=== PATIENT | female | born 1955 | race African-American/Black ===

== ENCOUNTER 2018-03-27 19:49 | Emergency (ER) | payer MEDICARE, MEDICAID ==
[~2018-03-27] VITALS: Ht 167.6 cm; Wt 98.0 kg
[2018-03-27] MEDS ORDERED: ACETAMINOPHEN 325MG TABLET PO ONE (22:45)
[2018-03-28] MEDS ORDERED: DIPHENHYDRAMINE 25MG CAPSULE PO ONE (01:45)
[2018-03-28 02:07] VITALS: BP 125/74
== END 2018-03-28 02:07 | disposition home or self-care (01) ==
LOC: ER 23:38
DX: S00.83XA Contusion of other part of head, initial encounter (principal); S20.219A Contusion of unspecified front wall of thorax, initial encounter; F99 Mental disorder, not otherwise specified; E11.9 Type 2 diabetes mellitus without complications; Y04.0XXA Assault by unarmed brawl or fight, initial encounter; Y93.89 Activity, other specified; Y92.018 Other place in single-family (private) house as the place of occurrence of the external cause
CPT/HCPCS: 70110; 71045; 99284; Q0163

== ENCOUNTER 2018-03-28 03:44 | Emergency (ER) | payer MEDICARE, MEDICAID ==
[~2018-03-28] VITALS: Ht 167.6 cm; Wt 109.0 kg
[2018-03-28] MEDS ORDERED: LORAZEPAM 1MG TABLET PO ONE (10:45)
[2018-03-28 14:44] VITALS: BP 136/70
== END 2018-03-28 15:27 | disposition home or self-care (01) ==
LOC: ER 03:44
DX: S06.9X9A Unspecified intracranial injury with loss of consciousness of unspecified duration, initial encounter (principal); E11.9 Type 2 diabetes mellitus without complications; R07.89 Other chest pain; Y04.0XXA Assault by unarmed brawl or fight, initial encounter; Y93.89 Activity, other specified; Y92.018 Other place in single-family (private) house as the place of occurrence of the external cause
CPT/HCPCS: 36415; 70110; 70450; 71045; 82565; 84520; 93005; 99284; 99285; Q0163

== ENCOUNTER 2018-05-02 18:21 | Emergency (ER) | payer MEDICARE, MEDICAID ==
[~2018-05-02] VITALS: Ht 162.6 cm; Wt 90.0 kg
[2018-05-03] MEDS ORDERED: MORPHINE SULFATE 4 MG/ML CPJ (NOT FOR IM USE) IV STA
[2018-05-03] MEDS ORDERED: SODIUM CHLORIDE 0.9% 1,000 ML IV ONE
[2018-05-03] MEDS ORDERED: ONDANSETRON 4MG ODT PO STA
[2018-05-03 00:20] LABS: BASOPHILS % 0.8 % (0.0-2.0); EOSINOPHILS % 2.3 % (0.0-5.0); HEMATOCRIT. 36.7 % (36.0-48.0); HEMOGLOBIN. 12.3 g/dL (12.0-16.0); MEAN CORPUSCULAR HEMOGLOBIN 28.1 pg (28.0-32.0); MEAN PLATELET VOLUME 10.4 fl (7.4-10.4); MONOCYTES % 8.6 % (2.0-8.0); NEUTROPHILS % 49.3 % (40.0-76.0); PLATELET 187 x1000/uL (130-400); RED BLOOD CELL COUNT 4.37 mill/uL (4.2-5.4); RED CELL DISTRIBUTION WIDTH 13.7 % (11.6-14.6)
[2018-05-03 00:27] LABS: CHLORIDE 107 mEq/L (98-107)
[2018-05-03 00:28] LABS: INR 1.1; PARTIAL THROMBOPLASTIN TIME 26.6 sec (23.4-31.0)
[2018-05-03 01:16] LABS: CLARITY URINE CLEAR (CLEAR); COLOR URINE YELLOW (YELLOW); KETONES URINE TRACE (NEGATIVE); LEUKOCYTE ESTERASE URINE NEGATIVE (NEGATIVE); NITRITE URINE NEGATIVE (NEGATIVE); OCCULT BLOOD URINE NEGATIVE (NEGATIVE); PROTEIN URINE NEGATIVE (NEGATIVE); SPECIFIC GRAVITY URINE 1.023 (1.005-1.030); UROBILINOGEN URINE 0.2 E.U./dL (0.2-1.0)
[2018-05-03] MEDS ORDERED: KETOROLAC 30MG/ML VIAL IV ONE (02:00)
[2018-05-03 04:15] VITALS: BP 139/71
== END 2018-05-03 05:42 | disposition home or self-care (01) ==
LOC: ER 18:41
DX: R10.13 Epigastric pain (principal); K80.20 Calculus of gallbladder without cholecystitis without obstruction; I10 Essential (primary) hypertension; E11.9 Type 2 diabetes mellitus without complications; K29.70 Gastritis, unspecified, without bleeding; Z88.6 Allergy status to analgesic agent
CPT/HCPCS: 36415; 71045; 74176; 76705; 80053; 81003; 83690; 85025; 85610; 85730; 93005; 96361; 96374; 99285; J1885; J7030; Q0162

== ENCOUNTER 2018-05-08 01:25 | Emergency (ER) | payer MEDICARE, MEDICAID ==
[~2018-05-08] VITALS: Ht 170.2 cm; Wt 114.0 kg
[2018-05-08 06:51] VITALS: BP 145/83
[2018-05-08 08:30] LABS: BASOPHILS % 0.7 % (0.0-2.0); EOSINOPHILS % 1.7 % (0.0-5.0); HEMATOCRIT. 38.9 % (36.0-48.0); LYMPHOCYTES % 27.6 % (20.0-50.0); MEAN CORPUSCULAR HEMOGLOBIN 28.1 pg (28.0-32.0); MEAN CORPUSCULAR VOLUME 84.3 fL (81.0-99.0); MEAN PLATELET VOLUME 10.8 fl (7.4-10.4); MONOCYTES % 8.7 % (2.0-8.0); NEUTROPHILS % 61.3 % (40.0-76.0); PLATELET 189 x1000/uL (130-400); RED BLOOD CELL COUNT 4.62 mill/uL (4.2-5.4); RED CELL DISTRIBUTION WIDTH 13.7 % (11.6-14.6)
[2018-05-08 10:05] LABS: CHLORIDE 107 mEq/L (98-107)
== END 2018-05-08 08:39 | disposition left against medical advice (07) ==
LOC: ER 01:59
DX: K80.20 Calculus of gallbladder without cholecystitis without obstruction (principal); K76.0 Fatty (change of) liver, not elsewhere classified; R11.2 Nausea with vomiting, unspecified; E11.9 Type 2 diabetes mellitus without complications; I10 Essential (primary) hypertension; F20.9 Schizophrenia, unspecified; Z88.6 Allergy status to analgesic agent
CPT/HCPCS: 36415; 76705; 80053; 83690; 85025; 99285

== ENCOUNTER 2018-05-25 08:52 | Emergency (ER) | payer MEDICARE, MEDICAID ==
[~2018-05-25] VITALS: Ht 167.6 cm; Wt 110.0 kg
[2018-05-25 08:54] VITALS: BP 144/77
== END 2018-05-25 10:06 | disposition home or self-care (01) ==
LOC: ER 08:52
DX: F99 Mental disorder, not otherwise specified (principal); Z76.0 Encounter for issue of repeat prescription; Z88.5 Allergy status to narcotic agent
CPT/HCPCS: 99284

== ENCOUNTER 2018-06-07 20:18 | Emergency (ER) | payer MEDICARE, MEDICAID ==
[~2018-06-07] VITALS: Ht 167.6 cm; Wt 120.5 kg
[2018-06-07] MEDS ORDERED: FAMOTIDINE 20MG/2ML VIAL IV STA (21:53)
[2018-06-07] MEDS ORDERED: SODIUM CHLORIDE 0.9% 1,000 ML IV ONE (21:53)
[2018-06-07] MEDS ORDERED: MAGNESIUM/ALUMINUM HYDROXIDE/SIMETHICONE 30ML UDC PO STA (21:53)
[2018-06-07] MEDS ORDERED: VISCOUS LIDOCAINE 2% 15 ML UDC PO STA (21:53)
[2018-06-07 23:34] LABS: BASOPHILS % 0.7 % (0.0-2.0); EOSINOPHILS % 1.9 % (0.0-5.0); HEMATOCRIT. 37.1 % (36.0-48.0); HEMOGLOBIN. 12.5 g/dL (12.0-16.0); LYMPHOCYTES % 35.6 % (20.0-50.0); MEAN CORPUSCULAR HEMOGLOBIN 28.5 pg (28.0-32.0); MEAN PLATELET VOLUME 11.2 fl (7.4-10.4); MONOCYTES % 7.8 % (2.0-8.0); PLATELET 173 x1000/uL (130-400); RED BLOOD CELL COUNT 4.37 mill/uL (4.2-5.4)
[2018-06-07 23:37] LABS: CHLORIDE 106 mEq/L (98-107)
[2018-06-08 00:08] VITALS: BP 135/78
== END 2018-06-08 00:23 | disposition home or self-care (01) ==
LOC: ER 20:18
DX: K29.00 Acute gastritis without bleeding (principal); E11.9 Type 2 diabetes mellitus without complications; F20.9 Schizophrenia, unspecified; M19.90 Unspecified osteoarthritis, unspecified site; Z88.2 Allergy status to sulfonamides; Z88.6 Allergy status to analgesic agent; Z88.5 Allergy status to narcotic agent
CPT/HCPCS: 36415; 80053; 83690; 85025; 93005; 96361; 96374; 99285; J3490; J7030

== ENCOUNTER 2018-07-16 17:53 | Emergency (ER) | payer MEDICARE, MEDICAID ==
[~2018-07-16] VITALS: Ht 167.6 cm; Wt 120.0 kg
[2018-07-16] MEDS ORDERED: LORAZEPAM 0.5MG TABLET PO ONE (19:00)
[2018-07-16 19:55] VITALS: BP 134/74
== END 2018-07-16 19:57 | disposition home or self-care (01) ==
LOC: ER 17:53
DX: F41.9 Anxiety disorder, unspecified (principal); E11.9 Type 2 diabetes mellitus without complications; I10 Essential (primary) hypertension; Z88.5 Allergy status to narcotic agent
CPT/HCPCS: 99283

== ENCOUNTER 2018-10-07 14:25 | Emergency (ER) | payer MEDICARE, MEDICAID ==
[~2018-10-07] VITALS: Ht 162.6 cm; Wt 120.0 kg
[2018-10-07 15:41] LABS: BASOPHILS % 0.9 % (0.0-2.0); EOSINOPHILS % 1.1 % (0.0-5.0); HEMOGLOBIN. 13.5 g/dL (12.0-16.0); LYMPHOCYTES % 30.6 % (20.0-50.0); MEAN CORPUSCULAR HEMOGLOBIN 28.1 pg (28.0-32.0); MEAN CORPUSCULAR VOLUME 85.6 fL (81.0-99.0); MEAN PLATELET VOLUME 11.2 fl (7.4-10.4); MONOCYTES % 7.4 % (2.0-8.0); PLATELET 176 x1000/uL (130-400); RED BLOOD CELL COUNT 4.79 mill/uL (4.2-5.4); RED CELL DISTRIBUTION WIDTH 13.8 % (11.6-14.6)
[2018-10-07 15:50] LABS: CHLORIDE 110 mEq/L (98-107)
[2018-10-07 15:54] LABS: ETHANOL BLOOD < 10 mg/dL
[2018-10-07 16:01] LABS: CLARITY URINE CLEAR (CLEAR); COLOR URINE YELLOW (YELLOW); KETONES URINE TRACE (NEGATIVE); LEUKOCYTE ESTERASE URINE NEGATIVE (NEGATIVE); NITRITE URINE NEGATIVE (NEGATIVE); OCCULT BLOOD URINE NEGATIVE (NEGATIVE); PROTEIN URINE NEGATIVE (NEGATIVE); SPECIFIC GRAVITY URINE 1.024 (1.005-1.030); UROBILINOGEN URINE 0.2 E.U./dL (0.2-1.0)
[2018-10-07 16:31] LABS: *AMPHETAMINES SCREEN URINE NEGATIVE (NEGATIVE); *BARBITURATES SCREEN URINE NEGATIVE (NEGATIVE); *BENZODIAZEPINES SCREEN URINE NEGATIVE (NEGATIVE); *COCAINE SCREEN URINE NEGATIVE (NEGATIVE); METHADONE URINE SCREEN NEGATIVE (NEGATIVE); OPIATES URINE SCREEN NEGATIVE (NEGATIVE)
[2018-10-07 16:32] LABS: CANNABINOID URINE SCREEN NEGATIVE (NEGATIVE); PHENCYCLIDINE URINE SCREEN NEGATIVE (NEGATIVE)
[2018-10-08] MEDS ORDERED: LORAZEPAM 1MG TABLET PO ONE ×2 (01:45→03:45)
[2018-10-08] MEDS ORDERED: DIPHENHYDRAMINE 25MG CAPSULE PO ONE (01:45)
[2018-10-08 10:21] VITALS: BP 152/76
== END 2018-10-08 10:23 | disposition home or self-care (01) ==
LOC: ER 14:25
DX: R45.851 Suicidal ideations (principal); E11.9 Type 2 diabetes mellitus without complications; R56.9 Unspecified convulsions; F20.9 Schizophrenia, unspecified; Z88.2 Allergy status to sulfonamides; Z88.5 Allergy status to narcotic agent; Z88.6 Allergy status to analgesic agent
CPT/HCPCS: 36415; 80053; 80305; 81003; 85025; 99284; G0482; Q0163

== ENCOUNTER 2018-10-23 22:21 | Emergency (ER) | payer MEDICARE, MEDICAID ==
[~2018-10-23] VITALS: Ht 170.2 cm; Wt 91.0 kg
[2018-10-23 22:42] VITALS: BP 152/79
== END 2018-10-24 02:30 | disposition left against medical advice (07) ==
LOC: ER 22:21
DX: Z53.21 Procedure and treatment not carried out due to patient leaving prior to being seen by health care provider (principal)
CPT/HCPCS: A4565

== ENCOUNTER 2018-12-10 15:36 | Emergency (ER) | payer MEDICARE, MEDICAID ==
[~2018-12-10] VITALS: Ht 167.6 cm; Wt 90.0 kg
[2018-12-10 15:48] VITALS: BP 158/76
== END 2018-12-10 17:30 | disposition left against medical advice (07) ==
LOC: ER 15:46
DX: Z53.21 Procedure and treatment not carried out due to patient leaving prior to being seen by health care provider (principal); E11.9 Type 2 diabetes mellitus without complications; R56.9 Unspecified convulsions

== ENCOUNTER 2018-12-15 20:53 | Emergency (ER) | payer MEDICARE, MEDICAID ==
[~2018-12-15] VITALS: Ht 165.1 cm; Wt 111.0 kg
[2018-12-15] MEDS ORDERED: MAGNESIUM/ALUMINUM HYDROXIDE/SIMETHICONE 30ML UDC PO STA (22:43)
[2018-12-15] MEDS ORDERED: VISCOUS LIDOCAINE 2% 15 ML UDC PO STA (22:43)
[2018-12-15] MEDS ORDERED: FAMOTIDINE 20MG TABLET PO ONE (22:45)
[2018-12-15 23:48] LABS: BASOPHILS % 0.8 % (0.0-2.0); EOSINOPHILS % 2.2 % (0.0-5.0); HEMATOCRIT. 42.5 % (36.0-48.0); LYMPHOCYTES % 34.5 % (20.0-50.0); MEAN CORPUSCULAR HEMOGLOBIN 28.5 pg (28.0-32.0); MEAN CORPUSCULAR VOLUME 86.8 fL (81.0-99.0); MEAN PLATELET VOLUME 10.3 fl (7.4-10.4); MONOCYTES % 9.5 % (2.0-8.0); PLATELET 201 x1000/uL (130-400); RED CELL DISTRIBUTION WIDTH 14.4 % (11.6-14.6)
[2018-12-15 23:56] LABS: CHLORIDE 109 mEq/L (98-107)
[2018-12-16 00:57] LABS: CLARITY URINE CLEAR (CLEAR); COLOR URINE YELLOW (YELLOW); KETONES URINE NEGATIVE (NEGATIVE); LEUKOCYTE ESTERASE URINE NEGATIVE (NEGATIVE); NITRITE URINE NEGATIVE (NEGATIVE); OCCULT BLOOD URINE NEGATIVE (NEGATIVE); PROTEIN URINE NEGATIVE (NEGATIVE); SPECIFIC GRAVITY URINE 1.021 (1.005-1.030); UROBILINOGEN URINE 0.2 E.U./dL (0.2-1.0)
[2018-12-16] MEDS ORDERED: ACETAMINOPHEN 500MG TABLET PO ONE (01:15)
[2018-12-16 09:13] VITALS: BP 150/70
== END 2018-12-16 09:21 | disposition home or self-care (01) ==
LOC: ER 20:53
DX: R10.13 Epigastric pain (principal); R51 Headache; F31.9 Bipolar disorder, unspecified; F20.9 Schizophrenia, unspecified; E11.9 Type 2 diabetes mellitus without complications; K29.70 Gastritis, unspecified, without bleeding; M06.9 Rheumatoid arthritis, unspecified; Z88.2 Allergy status to sulfonamides; Z88.5 Allergy status to narcotic agent; Z88.6 Allergy status to analgesic agent
CPT/HCPCS: 36415; 84484; 93005; 99284

== ENCOUNTER 2019-01-06 16:31 | Emergency (ER) | payer MEDICARE, MEDICAID ==
[~2019-01-06] VITALS: Ht 167.6 cm; Wt 76.0 kg
[2019-01-06 16:32] VITALS: BP 141/91
== END 2019-01-06 16:40 | disposition left against medical advice (07) ==
LOC: ER 16:31
DX: R46.89 Other symptoms and signs involving appearance and behavior (principal); Z53.21 Procedure and treatment not carried out due to patient leaving prior to being seen by health care provider

== ENCOUNTER 2019-01-29 18:58 | Emergency (ER) | payer MEDICARE, MEDICAID ==
[~2019-01-29] VITALS: Ht 167.6 cm; Wt 118.0 kg
[2019-01-29] MEDS: ACETAMINOPHEN 325MG TABLET PO ONE (19:57)
[2019-01-29 20:07] VITALS: BP 150/71
== END 2019-01-29 20:16 | disposition home or self-care (01) ==
LOC: ER 18:58
DX: M54.41 Lumbago with sciatica, right side (principal); E11.9 Type 2 diabetes mellitus without complications; Z88.5 Allergy status to narcotic agent; Z88.2 Allergy status to sulfonamides; Z88.6 Allergy status to analgesic agent
CPT/HCPCS: 82962; 99283

== ENCOUNTER 2019-05-12 05:48 | Emergency (ER) | payer MEDICARE, MEDICAID ==
[~2019-05-12] VITALS: Ht 167.6 cm; Wt 83.0 kg
[2019-05-12] MEDS ORDERED: KETOROLAC 15MG/ML VIAL IV ONE (07:00)
[2019-05-12] MEDS ORDERED: LEVETIRACETAM 1,000 MG in SODIUM CHLORIDE 0.9% 100 ML IV ONE (07:00)
[2019-05-12 07:58] LABS: BASOPHILS % 0.9 % (0.0-2.0); EOSINOPHILS % 2.6 % (0.0-5.0); HEMATOCRIT. 38.5 % (36.0-48.0); HEMOGLOBIN. 12.9 g/dL (12.0-16.0); LYMPHOCYTES % 31.7 % (20.0-50.0); MEAN CORPUSCULAR HEMOGLOBIN 29.2 pg (28.0-32.0); MEAN CORPUSCULAR VOLUME 87.2 fL (81.0-99.0); MEAN PLATELET VOLUME 10.3 fl (7.4-10.4); MONOCYTES % 10.3 % (2.0-8.0); NEUTROPHILS % 54.5 % (40.0-76.0); PLATELET 178 x1000/uL (130-400); RED BLOOD CELL COUNT 4.41 mill/uL (4.2-5.4)
[2019-05-12] MEDS ORDERED: LEVETIRACETAM 1000MG/100ML 100 ML IV NR (08:00)
[2019-05-12 08:03] LABS: CHLORIDE 106 mEq/L (98-107)
[2019-05-12 11:42] VITALS: BP 124/68
== END 2019-05-12 11:43 | disposition home or self-care (01) ==
LOC: ER 06:32
DX: R56.9 Unspecified convulsions (principal); M54.5 Low back pain; R51 Headache; E11.9 Type 2 diabetes mellitus without complications; I10 Essential (primary) hypertension; Z88.2 Allergy status to sulfonamides; Z88.6 Allergy status to analgesic agent
CPT/HCPCS: 36415; 70450; 80048; 85025; 96365; 96368; 96375; 99284; J1885; J1953; J7050

== ENCOUNTER 2022-07-21 16:56 | Emergency (ER) | payer MEDICARE, MEDICAID ==
[~2022-07-21] VITALS: Ht 167.6 cm; Wt 114.0 kg
[2022-07-21 17:00] VITALS: BP 161/75
== END 2022-07-21 18:55 | disposition home or self-care (01) ==
LOC: ER 16:56
DX: S60.450A Superficial foreign body of right index finger, initial encounter (principal); I10 Essential (primary) hypertension; E11.9 Type 2 diabetes mellitus without complications; Z98.890 Other specified postprocedural states; Z86.59 Personal history of other mental and behavioral disorders; X58.XXXA Exposure to other specified factors, initial encounter; Y93.89 Activity, other specified; Y92.89 Other specified places as the place of occurrence of the external cause; Y99.8 Other external cause status
CPT/HCPCS: 20520; 99284

== ENCOUNTER 2024-04-08 16:07 | Emergency (ER) | payer MEDICARE, MEDICAID ==
[~2024-04-08] VITALS: Ht 152.4 cm; Wt 118.0 kg
[2024-04-08 16:32] VITALS: O2SAT 98
[2024-04-08] MEDS: ACETAMINOPHEN 325MG TABLET PO ONE (20:27)
[2024-04-08] MEDS ORDERED: TOPUD MT (20:43)
[2024-04-08 22:40] VITALS: BP 133/69; PULSE 79; RESP 16; TEMP 98.7
== END 2024-04-08 22:45 | disposition home or self-care (01) ==
LOC: ER 16:07
DX: S09.90XA Unspecified injury of head, initial encounter (principal); F31.9 Bipolar disorder, unspecified; E11.9 Type 2 diabetes mellitus without complications; I10 Essential (primary) hypertension; F20.9 Schizophrenia, unspecified; Z88.2 Allergy status to sulfonamides; Y08.89XA Assault by other specified means, initial encounter; Y93.89 Activity, other specified; Y92.89 Other specified places as the place of occurrence of the external cause; Y99.8 Other external cause status
CPT/HCPCS: 73080; 73502; 99284

== ENCOUNTER 2024-08-15 12:29 | Emergency (ER) | payer MEDICARE, MEDICAID ==
[~2024-08-15] VITALS: Ht 167.6 cm; Wt 113.0 kg
[~2024-08-15 12:29] MED LIST: TOPUD MT
[2024-08-15 12:37] VITALS: O2SAT 97
[2024-08-15 14:13] LABS: CLARITY URINE CLEAR (CLEAR); COLOR URINE YELLOW (YELLOW); GLUCOSE URINE 3+ (NEGATIVE); KETONES URINE NEGATIVE (NEGATIVE); LEUKOCYTE ESTERASE URINE NEGATIVE (NEGATIVE); NITRITE URINE NEGATIVE (NEGATIVE); OCCULT BLOOD URINE NEGATIVE (NEGATIVE); PH URINE 6.5 (4.5-8.0); PROTEIN URINE NEGATIVE (NEGATIVE); SPECIFIC GRAVITY URINE 1.026 (1.005-1.030); UROBILINOGEN URINE 0.2 E.U./dL (0.2-1.0)
[2024-08-15] MEDS: ACETAMINOPHEN 325MG TABLET PO ONE (14:35)
[2024-08-15 14:36] VITALS: BP 132/70; PULSE 72; RESP 18; TEMP 36.94740; O2SAT 99
[2024-08-15 14:58] LABS: SQUAMOUS EPITHELIAL CELL URINE NONE SEEN /lpf (RARE/1+)
[2024-08-15 14:59] LABS: BACTERIA URINE NONE SEEN; RBC URINE NONE SEEN /hpf (0-2); WBC URINE 0-2 /hpf (0-2); YEAST URINE NONE SEEN
[2024-08-15 15:02] LABS: BASOPHILS % 0.7 % (0.0-2.0); EOSINOPHILS % 1.6 % (0.0-5.0); HEMATOCRIT. 46.2 % (36.0-48.0); HEMOGLOBIN. 15.5 g/dL (12.0-16.0); LYMPHOCYTES % 41.8 % (20.0-50.0); MEAN CORPUSCULAR HEMOGLOBIN 30.1 pg (28.0-32.0); MEAN CORPUSCULAR HGB CONC 33.6 g/dL (31.0-37.0); MEAN CORPUSCULAR VOLUME 89.8 fL (81.0-99.0); MONOCYTES % 7.5 % (2.0-8.0); NEUTROPHILS % 48.4 % (40.0-76.0); PLATELET 207 x1000/uL (130-400); RED BLOOD CELL COUNT 5.15 mill/uL (4.2-5.4); RED CELL DISTRIBUTION WIDTH 13.8 % (11.6-14.6); WHITE BLOOD COUNT 7.8 x1000/uL (4.5-11.0)
[2024-08-15 15:08] LABS: CHLORIDE 103 mEq/L (98-107); SODIUM 137 mEq/L (136-145)
[2024-08-15 15:09] LABS: CALCIUM 10.3 mg/dL (8.7-10.4); CARBON DIOXIDE 26 mEq/L (21-32)
[2024-08-15 15:14] LABS: CREATININE 0.8 mg/dL (0.6-1.0); GLUCOSE 189 mg/dL (70-105); UREA NITROGEN BLOOD 11 mg/dL (9-23)
[2024-08-15 15:18] LABS: INR 0.9; PROTHROMBIN TIME 10.3 sec (9.6-11.0)
[2024-08-15 15:41] LABS: TROPONIN I HIGH SENSITIVITY < 4 ng/L (3.0-34)
[2024-08-15] MEDS ORDERED: TOPUD MT (15:43)
== END 2024-08-15 16:24 | disposition home or self-care (01) ==
LOC: ER 12:38
DX: R07.89 Other chest pain (principal); R10.9 Unspecified abdominal pain; J44.9 Chronic obstructive pulmonary disease, unspecified; I10 Essential (primary) hypertension; E11.9 Type 2 diabetes mellitus without complications; F20.9 Schizophrenia, unspecified; F31.9 Bipolar disorder, unspecified; Z88.5 Allergy status to narcotic agent; Z88.2 Allergy status to sulfonamides; Z88.6 Allergy status to analgesic agent; Y04.0XXA Assault by unarmed brawl or fight, initial encounter; Y93.89 Activity, other specified; Y92.89 Other specified places as the place of occurrence of the external cause; Y99.8 Other external cause status
CPT/HCPCS: 36415; 71045; 74176; 80048; 81003; 84484; 85025; 93005; 99285

== ENCOUNTER 2025-02-28 09:29 | Inpatient (IN) | payer MEDICARE, MEDICAID ==
[~2025-02-28] VITALS: Ht 165.1 cm; Wt 97.6 kg
[2025-02-28 09:56] LABS: BASOPHILS % 0.6 % (0.0-2.0); EOSINOPHILS % 4.4 % (0.0-5.0); HEMATOCRIT. 42.8 % (36.0-48.0); HEMOGLOBIN. 14.2 g/dL (12.0-16.0); LYMPHOCYTES % 26.3 % (20.0-50.0); MEAN CORPUSCULAR HEMOGLOBIN 28.6 pg (28.0-32.0); MEAN CORPUSCULAR HGB CONC 33.1 g/dL (31.0-37.0); MEAN CORPUSCULAR VOLUME 86.3 fL (81.0-99.0); MEAN PLATELET VOLUME 10.1 fl (7.4-10.4); MONOCYTES % 7.5 % (2.0-8.0); NEUTROPHILS % 61.2 % (40.0-76.0); PLATELET 168 x1000/uL (130-400); RED BLOOD CELL COUNT 4.96 mill/uL (4.2-5.4); RED CELL DISTRIBUTION WIDTH 13.7 % (11.6-14.6); WHITE BLOOD COUNT 7.1 x1000/uL (4.5-11.0)
[2025-02-28 10:08] LABS: PROTHROMBIN TIME 10.8 sec (9.6-11.0)
[2025-02-28 10:21] LABS: CHLORIDE 97 mEq/L (98-107); POTASSIUM 3.7 mEq/L (3.5-5.1); SODIUM 133 mEq/L (136-145)
[2025-02-28 10:22] LABS: CARBON DIOXIDE 24 mEq/L (21-32)
[2025-02-28 10:23] LABS: CALCIUM 9.6 mg/dL (8.7-10.4)
[2025-02-28 10:28] LABS: GLUCOSE 322 mg/dL (70-105); TROPONIN I HIGH SENSITIVITY 4 ng/L (3.0-34); UREA NITROGEN BLOOD 12 mg/dL (9-23)
[2025-02-28 10:29] LABS: ALANINE AMINOTRANSFERASE 14 IU/L (10-49); ALBUMIN 4.2 g/dL (3.2-4.8); ASPARTATE AMINOTRANSFERASE 17 IU/L (<34)
[2025-02-28 10:30] LABS: BETA HYDROXYBUTYRATE 0.1 mMol/L (0.0-0.3); BILIRUBIN DIRECT 0.2 mg/dL (<=3.0); BILIRUBIN TOTAL 0.5 mg/dL (0.1-1.0); PROTEIN TOTAL 7.1 g/dL (6.0-8.3)
[2025-02-28 10:33] LABS: LACTIC ACID 2.8 mmol/L (0.4-2.0)
[2025-02-28] MEDS: SODIUM CHLORIDE 0.9% (SEPSIS BOLUS) IV ONE (10:59)
[2025-02-28] MEDS: PIPERACILLIN/TAZO 3.375G/50ML 50 ML IV ONE (10:59)
[2025-02-28] MEDS: VANCOMYCIN 1G PREMIX 200 ML IV ONE (11:38)
[2025-02-28 11:44] LABS: BG BASE EXCESS -3.8 mmol/L (-2.0-3.0); BG DEOXYHEMOGLOBIN 3.6 % (0.0-5.0); BG FRACTION INSPIRED OXYGEN 21; BG HCO3 ACT 21.1 mmol/L (21.0-28.0); BG OXYGEN SATURATION 96.4 % (94.0-98.0); BG OXYHEMOGLOBIN 95.4 % (94.0-98.0); BG PCO2 37.6 mmHg (32.0-45.0); BG PH 7.366 (7.350-7.450); BG PO2 87.4 mmHg (83.0-108.0); BG SAMPLE SITE RIGHT RADIAL; BG TOTAL HEMOGLOBIN 13.5 g/dL (12.0-16.0); BG VENT MODE ROOM AIR
[2025-02-28] MEDS ORDERED: MAGNESIUM/ALUMINUM HYDROXIDE/SIMETHICONE 30ML UDC PO PRN (13:15)
[2025-02-28] MEDS ORDERED: DEXTROSE 50% WATER 50ML SYRINGE IV PRN (13:15)
[2025-02-28] MEDS ORDERED: IPRATROPIUM/ALBUTEROL 0.5-3(2.5)MG/3ML NEB HHN PRN (13:15)
[2025-02-28] MEDS ORDERED: ONDANSETRON HCL 4MG/2ML INJ IV PRN (13:15)
[2025-02-28 13:42] VITALS: BP 140/67; PULSE 70; RESP 18; TEMP 36.5
[2025-02-28] MEDS: INSULIN LISPRO 100 UNITS/ML SUBCUT SCH ×2 (14:18→17:57)
[2025-02-28] MEDS: GUAIFENESIN 200MG/10ML SUGAR FREE UDC PO PRN (15:12)
[2025-02-28] MEDS ORDERED: LEVETIRACETAM 1,000MG in NACL 100ML PREMIX IV ONE (15:45)
[2025-02-28] MEDS: LEVETIRACETAM 1000MG PREMIX 100 ML IV SCH ×2 (15:53→21:01)
[2025-02-28 16:00] VITALS: BP 140/71; PULSE 80; RESP 18; TEMP 36.4; O2SAT 100
[2025-02-28 17:08] LABS: PHOSPHORUS 3.1 mg/dL (2.5-4.9); TROPONIN I HIGH SENSITIVITY 10 ng/L (3.0-34)
[2025-02-28] MEDS: BLOOD SUGAR DIAGNOSTIC STRIP TEST SCH (17:11)
[2025-02-28 17:40] LABS: CREATINE KINASE 88 IU/L (34-145)
[2025-02-28 17:53] LABS: CLARITY URINE CLEAR (CLEAR); COLOR URINE YELLOW (YELLOW); GLUCOSE URINE 3+ (NEGATIVE); KETONES URINE NEGATIVE (NEGATIVE); LEUKOCYTE ESTERASE URINE NEGATIVE (NEGATIVE); NITRITE URINE NEGATIVE (NEGATIVE); OCCULT BLOOD URINE NEGATIVE (NEGATIVE); PH URINE 5.5 (4.5-8.0); PROTEIN URINE NEGATIVE (NEGATIVE); SPECIFIC GRAVITY URINE 1.021 (1.005-1.030); UROBILINOGEN URINE 0.2 E.U./dL (0.2-1.0)
[2025-02-28 18:04] LABS: BACTERIA URINE NONE SEEN; RBC URINE 0-2 /hpf (0-2); SQUAMOUS EPITHELIAL CELL URINE 1+ /lpf (RARE/1+); WBC URINE 0-2 /hpf (0-2)
[2025-02-28 18:15] LABS: *AMPHETAMINES SCREEN URINE NEGATIVE (NEGATIVE); *BARBITURATES SCREEN URINE NEGATIVE (NEGATIVE); *BENZODIAZEPINES SCREEN URINE NEGATIVE (NEGATIVE); *COCAINE SCREEN URINE NEGATIVE (NEGATIVE); CANNABINOID URINE SCREEN NEGATIVE (NEGATIVE); ECSTASY MDMA SCREEN URINE NEGATIVE (NEGATIVE); METHADONE URINE SCREEN NEGATIVE (NEGATIVE); OPIATES URINE SCREEN NEGATIVE (NEGATIVE); PHENCYCLIDINE URINE SCREEN NEGATIVE (NEGATIVE)
[2025-02-28 20:00] VITALS: BP 128/58; PULSE 76; RESP 18; TEMP 36.5; O2SAT 100
[2025-02-28] MEDS: MAGNESIUM 1 G PREMIX 100 ML IV NR (20:46)
[2025-02-28] MEDS ORDERED: LEVETIRACETAM 1,000MG in NACL 100ML PREMIX IV SCH (21:00)
[2025-02-28] MEDS: FAMOTIDINE 20MG TABLET PO SCH (21:01)
[2025-02-28] MEDS: INSULIN GLARGINE 100 UNITS/ML SUBCUT SCH (21:57)
[2025-02-28] MEDS: QUETIAPINE FUMARATE 25MG TABLET PO SCH (22:28)
[2025-02-28] MEDS: ACETAMINOPHEN 325MG TABLET PO PRN (22:33)
[2025-03-01] VITALS (7 sets, daily range): BP systolic 116–165; BP diastolic 52–87; PULSE 68–78; RESP 18–20; TEMP 36.1–37.1; O2SAT 98–100
[2025-03-01 00:06] LABS: TROPONIN I HIGH SENSITIVITY 6 ng/L (3.0-34)
[2025-03-01 00:07] LABS: CREATINE KINASE 83 IU/L (34-145)
[2025-03-01] MEDS: DOCUSATE SODIUM 100MG CAPSULE PO PRN (01:12)
[2025-03-01 07:05] LABS: CHLORIDE 101 mEq/L (98-107); POTASSIUM 3.8 mEq/L (3.5-5.1); SODIUM 136 mEq/L (136-145)
[2025-03-01 07:06] LABS: CALCIUM 9.2 mg/dL (8.7-10.4); CARBON DIOXIDE 25 mEq/L (21-32)
[2025-03-01 07:11] LABS: CREATININE 0.8 mg/dL (0.6-1.0); GLUCOSE 279 mg/dL (70-105); TRIGLYCERIDE 128 mg/dL (0-150); UREA NITROGEN BLOOD 14 mg/dL (9-23)
[2025-03-01 07:12] LABS: LDL CHOLESTEROL 56 mg/dL (5-100); THYROID STIMULATING HORMONE 0.29 uIU/mL (0.55-4.78)
[2025-03-01 07:13] LABS: CHOLESTEROL 117 mg/dL (<200); HDL CHOLESTEROL 42 mg/dL (>65)
[2025-03-01] MEDS: RISPERIDONE 0.25MG TABLET PO SCH (09:35)
[2025-03-01] MEDS: EMPAGLIFLOZIN 25MG TABLET PO SCH (09:36)
[2025-03-01] MEDS: LORAZEPAM 2MG/ML UD SYRINGE IV PRN (10:57)
[2025-03-01] MEDS: CLONIDINE 0.1MG TABLET PO PRN (21:10)
[2025-03-01] MEDS: QUETIAPINE FUMARATE 25MG TABLET PO SCH (21:10)
[2025-03-01] MEDS: INSULIN GLARGINE 100 UNITS/ML SUBCUT SCH (21:13)
[2025-03-02] VITALS (7 sets, daily range): BP systolic 134–156; BP diastolic 70–87; PULSE 66–89; RESP 18–20; TEMP 36.1–37.1; O2SAT 96–100
[2025-03-02] MEDS ORDERED: FAMO20TA8 PO (09:37)
[2025-03-02] MEDS ORDERED: EMPA25TA PO (09:37)
[2025-03-02] MEDS ORDERED: QUET25TA PO (09:37)
[2025-03-02] MEDS ORDERED: LEVE1000 MT (09:37)
[2025-03-02] MEDS ORDERED: LANTUSUD SUBCUT (09:37)
[2025-03-02] MEDS: LACOSAMIDE 100MG TABLET PO SCH (17:28)
[2025-03-02] MEDS ORDERED: LEVETIRACETAM 500MG TABLET PO SCH (21:00)
== END 2025-03-02 20:32 | disposition home or self-care (01) | DRG 101 ==
LOC: ER 09:29 → 7WST 11:45 → ENRESERV 12:12
PROVIDERS: ADMIT Internal Medicine; ATTEND Internal Medicine
PROC: 4A00X4Z Measurement of Central Nervous Electrical Activity, External Approach (ICD-10-PCS; principal; 2025-03-02)
DX: G40.909 Epilepsy, unspecified, not intractable, without status epilepticus (principal); E87.20 Acidosis, unspecified; F03.93 Unspecified dementia, unspecified severity, with mood disturbance; I95.9 Hypotension, unspecified; E78.5 Hyperlipidemia, unspecified; F31.9 Bipolar disorder, unspecified; F20.9 Schizophrenia, unspecified; I10 Essential (primary) hypertension; K21.9 Gastro-esophageal reflux disease without esophagitis; E66.01 Morbid (severe) obesity due to excess calories; E11.9 Type 2 diabetes mellitus without complications; L60.2 Onychogryphosis; Z68.35 Body mass index [BMI] 35.0-35.9, adult; J44.9 Chronic obstructive pulmonary disease, unspecified; Z51.5 Encounter for palliative care; Z86.73 Personal history of transient ischemic attack (TIA), and cerebral infarction without residual deficits; Z79.4 Long term (current) use of insulin; Z79.84 Long term (current) use of oral hypoglycemic drugs; Z88.2 Allergy status to sulfonamides; Z88.5 Allergy status to narcotic agent; Z88.6 Allergy status to analgesic agent
CPT/HCPCS: 36415; 36600; 71045; 80048; 80061; 80076; 80305; 80339; 81003; 82010; 82375; 82550; 82805; 82962; 83036; 83605; 83735; 84100; 84145; 84439; 84443; 84484; 85025; 93005; 95816; 97162; 97166; 99291; A4606; J1815; J1953; J2060; J2543; J3370; J3475; J7030

== ENCOUNTER 2025-03-05 13:03 | Emergency (ER) | payer MEDICARE, MEDICAID ==
[~2025-03-05] VITALS: Ht 170.2 cm; Wt 89.0 kg
[~2025-03-05 13:03] MED LIST changes: +EMPA25TA PO; +FAMO20TA8 PO; +LANTUSUD SUBCUT; +LEVE1000 MT; +QUET25TA PO
[2025-03-05 13:05] VITALS: TEMP 36.6; O2SAT 97
[2025-03-05] MEDS ORDERED: LEVETIRACETAM 1,000MG in NACL 100ML PREMIX IV ONE (13:45)
[2025-03-05] MEDS: LEVETIRACETAM 1000MG PREMIX 100 ML IV SCH (14:04)
[2025-03-05] MEDS: DIPHENHYDRAMINE 50MG/ML VIAL IV ONE (14:04)
[2025-03-05 14:05] LABS: EOSINOPHILS % 2.2 % (0.0-5.0); HEMOGLOBIN. 14.4 g/dL (12.0-16.0); LYMPHOCYTES % 24.4 % (20.0-50.0); MEAN CORPUSCULAR HEMOGLOBIN 29.4 pg (28.0-32.0); MEAN CORPUSCULAR HGB CONC 34.2 g/dL (31.0-37.0); MEAN PLATELET VOLUME 10.3 fl (7.4-10.4); NEUTROPHILS % 64.4 % (40.0-76.0); PLATELET 211 x1000/uL (130-400); RED BLOOD CELL COUNT 4.89 mill/uL (4.2-5.4); RED CELL DISTRIBUTION WIDTH 13.5 % (11.6-14.6); WHITE BLOOD COUNT 9.5 x1000/uL (4.5-11.0)
[2025-03-05] MEDS: LIDOCAINE 5% PATCH TOP ONE (14:05)
[2025-03-05 14:13] LABS: CHLORIDE 99 mEq/L (98-107); POTASSIUM 3.6 mEq/L (3.5-5.1); SODIUM 135 mEq/L (136-145)
[2025-03-05 14:13] LABS: BG DEOXYHEMOGLOBIN 32.5 % (0.0-5.0)
[2025-03-05 14:14] LABS: CALCIUM 9.8 mg/dL (8.7-10.4); CARBON DIOXIDE 29 mEq/L (21-32); D-DIMER 0.26 mg/L FEU (<0.50); PROTHROMBIN TIME 10.6 sec (9.6-11.0)
[2025-03-05 14:19] LABS: GLUCOSE 267 mg/dL (70-105); UREA NITROGEN BLOOD 20 mg/dL (9-23)
[2025-03-05 14:21] LABS: TROPONIN I HIGH SENSITIVITY 4 ng/L (3.0-34)
[2025-03-05 14:22] LABS: BETA HYDROXYBUTYRATE 0.2 mMol/L (0.0-0.3)
[2025-03-05 16:03] LABS: TROPONIN I HIGH SENSITIVITY 5 ng/L (3.0-34)
[2025-03-05 16:44] VITALS: BP 141/71; PULSE 67; RESP 14; O2SAT 97
== END 2025-03-05 13:17 | disposition home or self-care (01) ==
LOC: ER 13:03
DX: R56.9 Unspecified convulsions (principal); R07.89 Other chest pain; E11.9 Type 2 diabetes mellitus without complications; E78.00 Pure hypercholesterolemia, unspecified; F03.90 Unspecified dementia, unspecified severity, without behavioral disturbance, psychotic disturbance, mood disturbance, and anxiety; I10 Essential (primary) hypertension; I69.30 Unspecified sequelae of cerebral infarction; Z79.4 Long term (current) use of insulin; Z79.84 Long term (current) use of oral hypoglycemic drugs; Z88.2 Allergy status to sulfonamides; Z88.5 Allergy status to narcotic agent; Z88.6 Allergy status to analgesic agent
CPT/HCPCS: 99285; 96365; 71045; 96375; 80048; 82010; 83880; 83735; 83930; 85025; 85379; 85610; 84484; 36415; 82375; 82803; 93005; J1953; J1200